=== PATIENT | male | born 2000 | race Caucasian/White ===

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

== ENCOUNTER 2021-03-26 10:14 | Emergency (ER) | payer OTHER ==
[~2021-03-26] VITALS: Ht 188 cm; Wt 87.5 kg
[2021-03-26] MEDS ORDERED: FLEXERIL PO (10:54)
[2021-03-26 11:05] VITALS: BP 135/85
== END 2021-03-26 11:06 | disposition home or self-care (01) ==
LOC: M.ERS 10:14
DX: S40.012A Contusion of left shoulder, initial encounter (principal); X58.XXXA Exposure to other specified factors, initial encounter; Y93.89 Activity, other specified; Y92.89 Other specified places as the place of occurrence of the external cause; Y99.8 Other external cause status